=== PATIENT | male | born 1970 | race African-American/Black ===

== ENCOUNTER 2021-05-25 01:58 | Emergency (ER) | payer SELFPAY ==
--- NOTE | ~2021-05-25 | XR_ITS ---
EXAMINATION: XR chest 2V 05/25/2021 02:42 INDICATION: Dyspnea. Fatigue. PROCEDURE: 2 view chest COMPARISON: No prior studies for comparison. FINDINGS: The lungs are clear. The cardiomediastinal silhouette is within normal limits. There are no pleural effusions. There is no pneumothorax suspected. IMPRESSION: 1: NO ACUTE CARDIOPULMONARY DISEASE. Reviewed, dictated and finalized at location A. RVISOR HARD CANDY
[2021-05-25 01:57] VITALS: BP 128/85; PULSE 82; RESP 16; TEMP 36.4; O2SAT 98
--- NOTE | 2021-05-25 02:21 | ECG_ITS ---
Measurements Intervals [place] Rate: 77 P: 136 [place]: 150 QRS: 95 QRSD: 99 T: 117 QT: 363 QTc: 412 Interpretive Statements ECTOPIC ATRIAL RHYTHM BORDERLINE RIGHT AXIS DEVIATION VOLTAGE CRITERIA FOR LVH MINIMAL ST DEPRESSION NO PREVIOUS ECG AVAILABLE FOR COMPARISON Electronically Signed On 05-25-2021 12:24:07 AIRCRAFT SALES REPRESENTATIVE by Jimi Srivastava M.D.
--- NOTE | 2021-05-25 02:22 | ED.WEAKNESS ---
HPI - Weakness General Chief complaint: Weakness Stated complaint: WEAKNESS, FATIGUE Time Seen by Provider: 05/25/21 02:01 Source: patient and RN notes reviewed Mode of arrival: EMS Limitations: no limitations History of Present Illness HPI Narrative: This is a 50 year old male who presents for evaluation of fatigue. He states yesterday he developed fatigue when he was at the gym. He reports he woke up monday morning feeling fine. He normally works out 2-3 times a week so he went to the gym. Once he got to the gym, he was too tired to work up, so he left. He states his whole body feels fatigue. He denies chest pain, sob, nausea, vomiting, abdominal pain, fever, chills. He denies sick contacts. He was evaluated at [facility] yesterday . He states he was not given a diagnosis so he came to [facility]. Related Data Allergies Allergy/AdvReac Type Severity Reaction Status Date / Time No Known Allergies Allergy Verified 05/25/21 02:03 Review of Systems Review of Systems: All systems reviewed & are unremarkable except as noted in HPI and below Constitutional: Constitutional: Denies chills, Reports fatigue and Reports weakness ENT: Denies nasal congestion and Denies sore throat Cardiovascular: Cardiovascular: Denies chest pain and Denies radiating jaw, neck or arm pain Respiratory: Respiratory: Denies dyspnea Gastrointestinal: Gastrointestinal: Denies abdominal pain, Denies diarrhea, Denies nausea and Denies vomiting Musculoskeletal: Musculoskeletal: Denies back pain and Denies myalgias Neurologic: Denies headache(s) PMFSH Past Medical History Medical History (Updated 05/25/21 @ 04:20 by Ena Morales MD) Patient denies medical problems Surgical History Surgical History (Updated 05/25/21 @ 02:28 by Ena Morales MD) No pertinent past surgical history Social History Social History (Updated 05/25/21 @ 02:28 by Ena Morales MD) Smoking packs per day: 0.5 Smoking cigarettes per day: 10.0 Smoking status: Current every day smoker Substance use: never Exam Narrative: GENERAL: Well-appearing, well-nourished, and in no acute distress. HEAD: Normocephalic, atraumatic EYES: PERRLA and EOMI, conjunctiva clear without discharge THROAT:Mucous membranes moist, Oropharynx normal without erythema, exudate, peritonsillar swelling or fluctuance NECK: Supple, without lymphadenopathy or mass RESPIRATORY: No respiratory distress, Airway patent, Respirations non-labored, Clear to auscultation without rales, rhonchi or wheeze HEART: Regular rate and rhythm. No murmur heard. Normal peripheral pulses. ABDOMEN: Soft, nontender, nondistended, normal active bowel sounds. No masses. No rebound or guarding, No organomegaly. EXTREMITIES: No edema, normal strength with full range of motion. SKIN: Warm, dry, normal color without rash NEURO: Alert and oriented x3. CN 2-12 grossly intact. No focal deficits. PSYCH: Normal mood and affect. Course Reevaluation(s) Reevaluation #1: Patient is laying in bed. He is no acute distress. Ambulatory. He has also been fed. I Discussed evaluation has been unremarkable. Date: 05/25/21 Time: 04:12 Vital Signs Vital signs: Vital Signs Temperature 97.6 F 05/25/21 01:57 Pulse Rate 82 05/25/21 01:57 Respiratory Rate 16 05/25/21 01:57 Blood Pressure 128/85 05/25/21 01:57 Pulse Oximetry 98 05/25/21 01:57 Temperature 97.6 F 05/25/21 01:57 Pulse Rate 87 05/25/21 04:31 Respiratory Rate 18 05/25/21 04:31 Blood Pressure 109/74 05/25/21 04:31 Pulse Oximetry 99 05/25/21 04:31 MDM - Weakness Lab Data Attestation: I reviewed the patient's lab results. Result diagrams: 05/25/21 02:49 05/25/21 02:49 Labs: Lab Results 05/25/21 05/25/21 05/25/21 Range/Units 02:32 02:49 02:49 WBC (4.5-10.0) K/mm3 RBC (4.6-6.20) M/mm3 Hgb (14.0-18.0) g/dL Hct (42.0-52.0) % MCV (
[2021-05-25 02:30] VITALS: BP 121/82; PULSE 73; RESP 20; O2SAT 98
--- NOTE | 2021-05-25 02:34 | PC.NURSE ---
Pt to imaging at this time.
[2021-05-25 02:58] LABS: Basophils Percent Auto 0.6 % (0.2-1.2); Eosinophils Absolute Auto 0.2 K/mm3 (0-0.3); Eosinophils Percent Auto 2.8 % (0-4.4); Hematocrit 33.5 % (42.0-52.0); Hemoglobin 11.5 g/dL (14.0-18.0); Immature Granulocyte Absolute 0.01 K/mm3 (0.00-0.031); Immature Granulocyte Percent A 0.1 % (0-0.5); Lymphocytes Absolute Auto 2.69 K/mm3 (0.9-3.2); Lymphocytes Percent Auto 39.5 % (18.3-44.2); Mean Corpuscular HGB Conc 34.3 g/dl (32-36); Mean Corpuscular Hemoglobin 31.3 pg (26-34); Mean Platelet Volume 9.7 fl (7.4-10.4); Monocytes Absolute Auto 0.4 K/mm3 (0.1-0.6); Monocytes Percent Auto 6.3 % (2.6-8.5); Neutrophils Absolute Auto 3.5 K/mm3 (1.3-6.7); Neutrophils Percent Auto 50.7 % (45.5-73.1); Platelet Count Result 253 k/mm3 (150-375); Red Blood Count 3.68 M/mm3 (4.6-6.20); Red Cell Distribution Width 14.3 % (11.5-14.5); White Blood Count 6.8 K/mm3 (4.5-10.0)
[2021-05-25 03:02] LABS: Add Urine Microscopic? NO; Appearance Urine Clear (Clear); Bilirubin Urine Negative (Negative); Blood Urine Negative (Negative); Color Urine Yellow (Yellow); Glucose Urine UA Negative (Negative); Ketones Urine Negative (Negative); Leukocyte Esterase Ur Negative LEU/UL (Negative); Nitrate Urine Negative (Negative); Protein Urine Negative (Negative); Specific Grav Ur 1.006 (1.001-1.035); Urobilinogen Urine Negative mg/dL (<2.0)
[2021-05-25 03:11] LABS: Prothrombin Time 12.5 Seconds (11.1-14.7)
[2021-05-25 03:12] LABS: Alanine Aminotransferase 20 U/L (4-50); Albumin Level 3.9 g/dL (3.5-5.1); Alkaline Phosphatase 59 U/L (38-126); Anion Gap 3 mmol/L (8-16); Aspartate Amino Transferase 33 U/L (17-59); Bilirubin,Total 0.1 mg/dL (0.2-1.3); Blood Urea Nitrogen 12 mg/dL (9-20); Calcium 8.4 mg/dL (8.4-10.2); Carbon Dioxide 31 mmol/L (22-30); Chloride 108 mmol/L (98-107); Estimated CRCL calculation 113 ml/min; Estimated Glomerular Filt Rate > 60; Ethanol < 10 mg/dL (<10); Glucose 95 mg/dL (65-110); Lipase 86 U/L (23-300); Potassium 3.5 mmol/L (3.4-5.0); Sodium 142 mmol/L (137-145)
[2021-05-25 03:14] LABS: SARS-CoV-2 RNA PCR Negative
[2021-05-25 03:21] LABS: Amphetamine Screen Urine Negative (Negative); Barbiturate Screen Urine Negative (Negative); Benzodiazepines Screen Urine Negative (Negative); Cannabinoid Screen Urine Negative (Negative); Cocaine Screen Urine Negative (Negative); Methadone Screen Urine Negative (Negative); Opiate Screen Urine Negative (Negative); Phencyclidine Screen Urine Negative (Negative)
[2021-05-25 03:25] LABS: Partial Thromboplastin Time 22.2 SECONDS (22.3-36.8)
[2021-05-25 03:30] VITALS: BP 122/83; PULSE 67; RESP 18; O2SAT 99
[2021-05-25 03:31] LABS: Troponin I < 0.012 ng/mL (0.000-0.034)
[2021-05-25 04:31] VITALS: BP 109/74; PULSE 87; RESP 18; O2SAT 99
== END 2021-05-25 05:35 | disposition home or self-care (01) ==
PROVIDERS: Emergency Provider General Practice
DX: D64.9 Anemia, unspecified (principal); R53.83 Other fatigue; F17.210 Nicotine dependence, cigarettes, uncomplicated; Z20.822 Contact with and (suspected) exposure to COVID-19
CPT/HCPCS: 36415; 71046; 80053; 80307; 81003; 83690; 84484; 85025; 85610; 85730; 93005; 99284; C9803; U0003; U0005

== ENCOUNTER 2021-05-27 04:33 | Emergency (ER) | payer SELFPAY ==
[2021-05-27] VITALS (8 sets, daily range): BP systolic 123; BP diastolic 76; PULSE 90–100; RESP 15–19; TEMP 36.8; O2SAT 96
--- NOTE | ~2021-05-27 | XR_ITS ---
XR chest 2V DATE: 05/27/2021 05:00 INDICATION: Dyspnea. Elevated d-dimer. TECHNIQUE: PA and lateral views COMPARISON: 05/25/2021 2 view chest FINDINGS: Normal heart size. No hilar or mediastinal enlargement. No pulmonary infiltrate or consolid ation, pleural effusion or pulmonary vascular congestion or pneumothorax. Some metallic foreign bodies are noted overlying the left upper quadrant of the abdomen and within th e left upper abdomen and abdominal wall on correlation with 05/27/2021 CT examination of the chest. IMPRESSION: No active cardiopulmonary disease Metallic foreign bodies, left upper abdomen and abdominal wall Reviewed, dictated and finalized at location A. ICAL PHARMACOLOGIST
--- NOTE | ~2021-05-27 | CT_ITS ---
EXAMINATION: CTA chest PE protocol DATE: 05/27/2021 06:27 INDICATION: Dyspnea. Elevated d-dimer. TECHNIQUE: Computed tomography angiography (CTA) of the chest was performed with 100 mL Omnipaque-350 intravenous contrast timed to evaluate the pulmonary arteries. Coronal maximum intensity projection 3D-reconstructions were created by the technologist. Automated exposure control and iterative reconst ruction technique were employed. Exam dose: 484.96 mGy-cm total exam DLP. COMPARISON: 05/27/2021 2 view chest 05/25/2021 2 view chest FINDINGS: There is moderate contrast opacification of the pulmonary arteries and no apparent pulmonar y embolism. No thoracic aortic aneurysm or dissection. Heart size is within normal range. No hilar or mediastinal mass lesion or lymphadenopathy. No pericardial or pleural effusion. There is minimal atelectasis at the lung bases. The lungs are clear of consolidation. Prominent degenerative disc disease in the lower cervical spine. IMPRESSION: No evidence of pulmonary embolism is detected Reviewed, dictated and finalized at Location [facility]. Reviewed, dictated and finalized at location A. CCO WAREHOUSE AGENT
--- NOTE | 2021-05-27 04:40 | PC.NURSE ---
ekg done at 0440
--- NOTE | 2021-05-27 04:42 | ECG_ITS ---
Measurements Intervals [place] Rate: 92 P: 70 [place]: 153 QRS: 62 QRSD: 87 T: 60 QT: 349 QTc: 432 Interpretive Statements SINUS RHYTHM MODERATE VOLTAGE CRITERIA FOR LVH, CONSIDER NORMAL VARIANT [MEETS CRITERIA IN ONE OF: R(aVL), S(V1), R(V5), R(V5/V6)+S(V1)] ST ELEVATION, CONSIDER PERICARDITIS, EARLY REPOLARIZATION OR INJURY PATTERN ABNORMAL ECG Electronically Signed On 05-27-2021 9:58:53 MISSILE MECHANIC by Howard Flores M.D.
[2021-05-27] MEDS: SODIUM CHLORIDE 0.9% IV 1,000 ML 999 ML IV CONT (05:00)
--- NOTE | 2021-05-27 05:02 | ED.SOB ---
HPI - SOB/Dyspnea General Chief Complaint: Shortness of Breath/Dyspnea Stated Complaint: weakness and sob x 1 hour Time Seen by Provider: 05/27/21 04:38 Source: patient History of Present Illness HPI Narrative: Patient presents with shortness of breath and weakness. Reports she was walking home from somewhere when he developed shortness of breath. His symptoms started approximately 1 hour ago and is hard time catching of air. He also reports some abdominal pain and nausea with diarrhea he denies any fevers congestion. He does report mild cough denies any chest pain or lightheadedness. Related Data Allergies Allergy/AdvReac Type Severity Reaction Status Date / Time No Known Allergies Allergy Verified 05/25/21 02:03 Review of Systems Review of Systems: CONSTITUTIONAL: Denies fever, chills, or sweats. EYES: Denies visual changes, redness, or discharge. ENT: Denies rhinorrhea, congestion, sore throat, or otalgia. CARDIOVASCULAR: Denies chest pain, palpitations, or edema. RESPIRATORY: Cough and shortness of breath GASTROINTESTINAL: Abdominal pain nausea diarrhea GENITOURINARY: Denies dysuria or hematuria. SKIN: Denies rash or itching. MUSCULOSKELETAL: Denies back pain, joint pain, or myalgia. NEUROLOGIC: Denies headache, numbness, dizziness, or weakness. PSYCHIATRIC: Denies anxiety or depression. All systems reviewed & are unremarkable except as noted in HPI and below PMFSH Past Medical History Medical History Patient denies medical problems Surgical History Surgical History No pertinent past surgical history Social History Social History Smoking packs per day: 0.5 Smoking cigarettes per day: 10.0 Smoking status: Current every day smoker Substance use: never Exam Narrative: GENERAL: Well-appearing, well-nourished, and in no acute distress. HEAD: Normocephalic, atraumatic. EYES: PERRLA and EOMI. ENT: Nares clear, no rhinorrhea or epistaxis. Mucous membranes moist. NECK: Supple. No masses. No JVD CHEST: Clear to auscultation. No respiratory distress. No wheezes rales or rhonchi HEART: Regular rate and rhythm. No murmur heard. Normal peripheral pulses. ABDOMEN: Soft, nontender, nondistended, normal active bowel sounds. EXTREMITIES: Normal range of motion. No edema. SKIN: Warm, dry, no rash. NEURO: No focal deficits. Alert and oriented x3. PSYCH: Normal mood and affect. Course Reevaluation(s) Reevaluation #1: Patient resting comfortably easily awoke. Results and plan reviewed with patient. Patient is comfortable outpatient plan. Date: 05/27/21 Time: 07:29 Vital Signs Vital signs: Vital Signs Temperature 36.8 C 05/27/21 04:34 Pulse Rate 99 05/27/21 04:34 Respiratory Rate 18 05/27/21 04:34 Blood Pressure 123/76 05/27/21 04:34 Pulse Oximetry 96 05/27/21 04:34 Temperature 36.8 C 05/27/21 04:34 Pulse Rate 90 05/27/21 07:15 Respiratory Rate 16 05/27/21 07:15 Blood Pressure 123/76 05/27/21 04:34 Pulse Oximetry 96 05/27/21 05:49 MDM - SOB/Dyspnea MDM Narrative Medical decision making narrative: H&P as above, vss, pt looks clinically well, exam reassuring, labs slight elevation dimer otherwise unremarkable, img without acute process, additional labs/img considered, symptomatic relief available as needed, on reevaluation pt continues to looks clinically well. Symptoms remain of unclear etiology, dns ACS, PE, dissection, pneumothorax, severe sepsis. plan to tx/monitor as op w/ pcm f/u findings/plan discussed with pt, pt agree/comfortable with plan, return precautions given Lab Data Result diagrams: 05/27/21 05:07 05/27/21 05:07 Labs: Lab Results 05/27/21 05/27/21 05/27/21 Range/Units 05:07 05:07 05:07 WBC 9.4 (4.5-10.0) K/mm3 RBC 3.55 L (4.6-6.20) M/mm3 Hgb
[2021-05-27 05:15] LABS: Basophils Absolute Auto 0.1 K/mm3 (0.0-0.1); Basophils Percent Auto 0.6 % (0.2-1.2); Eosinophils Absolute Auto 0.2 K/mm3 (0-0.3); Hematocrit 32.5 % (42.0-52.0); Hemoglobin 11.1 g/dL (14.0-18.0); Immature Granulocyte Absolute 0.03 K/mm3 (0.00-0.031); Immature Granulocyte Percent A 0.3 % (0-0.5); Lymphocytes Absolute Auto 2.24 K/mm3 (0.9-3.2); Lymphocytes Percent Auto 23.7 % (18.3-44.2); Mean Corpuscular HGB Conc 34.2 g/dl (32-36); Mean Corpuscular Hemoglobin 31.3 pg (26-34); Mean Corpuscular Volume 91.5 fl (80-100); Mean Platelet Volume 9.3 fl (7.4-10.4); Monocytes Absolute Auto 0.5 K/mm3 (0.1-0.6); Monocytes Percent Auto 5.7 % (2.6-8.5); Neutrophils Absolute Auto 6.4 K/mm3 (1.3-6.7); Neutrophils Percent Auto 67.7 % (45.5-73.1); Platelet Count Result 283 k/mm3 (150-375); Red Blood Count 3.55 M/mm3 (4.6-6.20); Red Cell Distribution Width 14.4 % (11.5-14.5); White Blood Count 9.4 K/mm3 (4.5-10.0)
[2021-05-27 05:28] LABS: Alanine Aminotransferase 18 U/L (4-50); Albumin Level 4.1 g/dL (3.5-5.1); Alkaline Phosphatase 60 U/L (38-126); Anion Gap 7 mmol/L (8-16); Aspartate Amino Transferase 36 U/L (17-59); Bilirubin,Total 0.4 mg/dL (0.2-1.3); Blood Urea Nitrogen 17 mg/dL (9-20); Calcium 8.5 mg/dL (8.4-10.2); Carbon Dioxide 29 mmol/L (22-30); Chloride 104 mmol/L (98-107); D Dimer 0.65 ug/mL (<0.48); Estimated CRCL calculation 127 ml/min; Estimated Glomerular Filt Rate > 60; Glucose 96 mg/dL (65-110); Lipase 61 U/L (23-300); Magnesium 1.8 mg/dL (1.6-2.3); Potassium 3.7 mmol/L (3.4-5.0); Sodium 140 mmol/L (137-145)
[2021-05-27 05:28] LABS: Ethanol < 10 mg/dL (<10)
[2021-05-27 05:39] LABS: Troponin I < 0.012 ng/mL (0.000-0.034)
--- NOTE | 2021-05-27 08:45 | PC.NURSE ---
Pt up for dc, pt decided to washup at bedside. Gave him 5-10 minutes. Went to check in on pt and stated to stop coming in the room, advised pt that he was dc and needed to wait in lobby. Pt stated he would be out in a few. Charge nurse notified.
== END 2021-05-27 08:55 | disposition home or self-care (01) ==
PROVIDERS: Emergency Provider Emergency Medicine
DX: R06.00 Dyspnea, unspecified (principal); R53.83 Other fatigue; F17.210 Nicotine dependence, cigarettes, uncomplicated
CPT/HCPCS: 36415; 71046; 71275; 80053; 80307; 83690; 83735; 84484; 85025; 85380; 93005; 96360; 96361; 99284; J7030; Q9967

== ENCOUNTER 2021-06-05 16:04 | Emergency (ER) | payer SELFPAY ==
[2021-06-05] VITALS (13 sets, daily range): BP systolic 124–134; BP diastolic 72–92; PULSE 57–71; RESP 12–18; TEMP 36.5; O2SAT 99–100
--- NOTE | ~2021-06-05 | XR_ITS ---
EXAMINATION: XR chest 1V portable DATE: 06/05/2021 16:32 INDICATION: Midsternal chest pain TECHNIQUE: frontal view of the chest was obtained. COMPARISON: Chest radiograph dated 06/23/2021 FINDINGS: 5 mild scarring at the left costophrenic angle. No new airspace opacities, pulmonary edema, pleural e ffusion or pneumothorax. The cardiomediastinal silhouette is normal. Again seen are a few chronic met allic foreign bodies, likely shrapnel at the left upper quadrant. Moderate thoracic spondylosis. IMPRESSION: 1. No acute cardiopulmonary disease. Reviewed, dictated and finalized at location A. IFIED COMPOSITES TECHNICIAN
--- NOTE | 2021-06-05 16:18 | ED.GENADULT ---
HPI - General Adult General Chief complaint: Chest Pain Stated complaint: CP Time Seen by Provider: 06/05/21 16:13 Source: patient and EMS Mode of arrival: EMS Limitations: no limitations History of Present Illness HPI narrative: Patient is 50 years old -[place] male was walking to the gas station, smoking a cigarette, suddenly central chest pain, tightness, 9 out of 10 associated with confusion, call 911, on arrival to the ED his pain is 8 out of 10. EKG on arrival did not show any new changes compared to May 27, 2021. Today is the third ER visit in our hospital since May 25, patient went to [facility] ago for the same complaint. Patient denies history of diabetes, hypertension, hyperlipidemia, family histor of coronary artery disease, similar symptoms before May 25. Patient from [place], passing through, does not have a job, lives with friends, hotels. Actively smoker.. Patient also denies any aggravating or relieving factors, fever, chills, nausea, vomiting, shortness of breath, back pain, alcohol use or drug abuse. 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 Related Data Allergies Allergy/AdvReac Type Severity Reaction Status Date / Time No Known Allergies Allergy Verified 05/25/21 02:03 Review of Systems Review of Systems: CONSTITUTIONAL: Denies fever, chills, or sweats. EYES: Denies visual changes, redness, or discharge. ENT: Denies rhinorrhea, congestion, sore throat, or otalgia. CARDIOVASCULAR: Denies chest pain, palpitations, or edema. RESPIRATORY: Denies cough or dyspnea. GASTROINTESTINAL: Denies abdominal pain, nausea, vomiting, or diarrhea. GENITOURINARY: Denies dysuria or hematuria. SKIN: Denies rash or itching. MUSCULOSKELETAL: Denies back pain, joint pain, or myalgia. NEUROLOGIC: Denies headache, numbness, or weakness. PSYCHIATRIC: Denies anxiety or depression. [facility] Past Medical History Medical History Patient denies medical problems Surgical History Surgical History No pertinent past surgical history Social History Social History Smoking packs per day: 0.5 Smoking cigarettes per day: 10.0 Smoking status: Current every day smoker Substance use: never Exam Narrative: General appearance: Well-developed, well-nourished, patient laying down in bed, comfortable, does not look in any pain or distress Skin: Normal color Head: Normocephalic, nontraumatic Eyes: Clear conjunctiva ENT: Oropharynx normal, ears normal, nose normal Neck: Supple, nontender Chest and respiratory: Airway patent, no respiratory distress, no accessory muscle use Heart: Regular rate/rhythm Abdomen: Soft, nontender, no organomegaly, quiet bowel sounds Vascular: Normal peripheral pulses, normal capillary refill. Musculoskeletal: Normal range of motion, nontender back Neurologic: Alert and oriented ?3, REFRACTORY REPAIRER is normal as tested, no gross motor deficit Course Course Emergency Course: Stable PIPE CHIPPER/PA Physician Supervision Patient work-up did not show any significant finding for his presentation. I believe patient is homeless, temperature today is less than 30 Fahrenheit, patient probably seeking a chcf or a place to eat and relax and get warm. Patient came to our emergency room May 25 and today. Been to [facility] 3 days ago and the probably other hospitals between. For the same complaint. Patient does not have comorbidities, his cardiac score is 2, Consultations Consultation #1: Dr. Anthony Date:
--- NOTE | 2021-06-05 16:21 | ECG_ITS ---
Measurements Intervals [place] Rate: 69 P: 78 [place]: 169 QRS: 74 QRSD: 94 T: 68 QT: 385 QTc: 413 Interpretive Statements SINUS RHYTHM VOLTAGE CRITERIA FOR LVH [MEETS CRITERIA IN ONE OF: R(aVL), S(V1), R(V5), R(V5/V6)+S(V1)] DIFFUSE ST ELEVATION; POSSIBLE EARLY REPOLARIZATION VERSUS PERICARDITIS. COMPARED TO ECG 05/27/2021 04:40:[address] ELEVATION IS SOMEWHAT BETTER. Electronically Signed On 06-05-2021 19:36:27 PRINTED CIRCUIT BOARD PCB DESIGNER by Janneth Anthony M.D.
[2021-06-05 16:32] LABS: Basophils Percent Auto 0.7 % (0.2-1.2); Eosinophils Absolute Auto 0.2 K/mm3 (0-0.3); Eosinophils Percent Auto 2.6 % (0-4.4); Hemoglobin 10.9 g/dL (14.0-18.0); Immature Granulocyte Absolute 0.01 K/mm3 (0.00-0.031); Immature Granulocyte Percent A 0.2 % (0-0.5); Lymphocytes Absolute Auto 2.01 K/mm3 (0.9-3.2); Mean Corpuscular Volume 96.8 fl (80-100); Mean Platelet Volume 9.2 fl (7.4-10.4); Monocytes Absolute Auto 0.7 K/mm3 (0.1-0.6); Monocytes Percent Auto 10.7 % (2.6-8.5); Neutrophils Absolute Auto 3.2 K/mm3 (1.3-6.7); Neutrophils Percent Auto 52.8 % (45.5-73.1); Platelet Count Result 331 k/mm3 (150-375); Red Blood Count 3.41 M/mm3 (4.6-6.20); Red Cell Distribution Width 18.4 % (11.5-14.5); White Blood Count 6.1 K/mm3 (4.5-10.0)
[2021-06-05] MEDS: ASPIRIN 81 MG CHEWABLE TABLET 324 MG PO (16:33)
[2021-06-05 16:45] LABS: Alanine Aminotransferase 16 U/L (4-50); Albumin Level 4.1 g/dL (3.5-5.1); Alkaline Phosphatase 59 U/L (38-126); Anion Gap 3 mmol/L (8-16); Aspartate Amino Transferase 31 U/L (17-59); Bilirubin,Total 0.3 mg/dL (0.2-1.3); Blood Urea Nitrogen 19 mg/dL (9-20); CRP < 0.5 mg/dL (<1.0); Calcium 8.7 mg/dL (8.4-10.2); Carbon Dioxide 31 mmol/L (22-30); Chloride 105 mmol/L (98-107); Estimated CRCL calculation 107 ml/min; Estimated Glomerular Filt Rate > 60; Glucose 78 mg/dL (65-110); INR 0.9; Potassium 3.8 mmol/L (3.4-5.0); Prothrombin Time 12.2 Seconds (11.1-14.7); Sodium 139 mmol/L (137-145)
[2021-06-05 16:46] LABS: Partial Thromboplastin Time 26.4 SECONDS (22.3-36.8)
[2021-06-05 16:56] LABS: NT Pro B Type Natriuretic Pept 35 pg/mL (5-100); Troponin I < 0.012 ng/mL (0.000-0.034)
[2021-06-05 17:02] LABS: Erythrocyte Sedimentation Rate 19 mm/hr (0-20)
[2021-06-05 19:36] LABS: Troponin I < 0.012 ng/mL (0.000-0.034)
== END 2021-06-05 21:10 | disposition home or self-care (01) ==
PROVIDERS: Emergency Provider Emergency Medicine
DX: R07.89 Other chest pain (principal); F17.210 Nicotine dependence, cigarettes, uncomplicated; R94.31 Abnormal electrocardiogram [ECG] [EKG]
CPT/HCPCS: 36415; 71045; 80053; 83880; 84484; 85025; 85610; 85652; 85730; 86140; 93005; 99284; A9270